=== PATIENT | male | born 1960 | race Caucasian/White ===

== ENCOUNTER 2016-11-09 22:36 | Emergency (ER) | payer BC ==
[2016-11-09] MEDS ORDERED: Ondansetron 4 MG Tab.DIS PO ONE (22:37)
[2016-11-09 23:12] VITALS: BP 112/87
[2016-11-10] MEDS ORDERED: Ondansetron 4 MG Tab.DIS PO ONE (00:07)
[2016-11-10 00:40] LABS: CHLORIDE,CL 96 mmol/L (101-111); SODIUM,NA 138 mmol/L (135-145)
--- NOTE | 2016-11-10 01:34 | EDM.PDOC ---
ED HPI GENERAL MEDICAL PROBLEM - General Chief Complaint: General Stated Complaint: DEHYDRATED? NOT EATING Time Seen by Provider: 11/09/16 23:10 Source of Information: Reports: Patient History Limitations: Reports: No Limitations - History of Present Illness INITIAL COMMENTS - FREE TEXT/NARRATIVE: Patient c/o nausea with vomiting worse after meals. Notes onset 2 weeks ago after starting new weekly medication for diabetes. Tolerating some small amounts of water. Duration: Week(s): (2) Worsens with: Reports: Eating Associated Symptoms: Reports: Loss of Appetite, Nausea/Vomiting - Related Data Allergies Allergy/AdvReac Type Severity Reaction Status Date / Time No Known Allergies Allergy Verified 11/09/16 23:12 Home Meds: Home Meds Insulin Detemir [Levemir] 20 units SQ BEDTIME 08/22/13 [History] metFORMIN [Glucophage] 500 mg PO BIDAC 08/22/13 [History] Past Medical History Cardiovascular History: Reports: High Cholesterol - Past Surgical History HEENT Surgical History: Reports: Other (See Below) Other HEENT Surgeries/Procedures: cleff palate reconstruction. GI Surgical History: Reports: Colonoscopy Social & Family History - Family History Family Medical History: Noncontributory - Tobacco Use Smoking Status *Q: Never Smoker Second Hand Smoke Exposure: No - Caffeine Use Caffeine Use: Reports: Coffee - Alcohol Use Days Per Week of Alcohol Use: 0 - Recreational Drug Use Recreational Drug Use: No ED ROS GENERAL - Review of Systems Review Of Systems: ROS reveals no pertinent complaints other than HPI. ED EXAM, GENERAL - Physical Exam Exam: See Below Exam Limited By: No Limitations General Appearance: Alert, Anxious, Mild Distress Eye Exam: Bilateral Eye: EOMI Ears: Normal External Exam, Normal TMs, Other (hearing aid left) Nose: Normal Inspection Throat/Mouth: Normal Inspection Head: Atraumatic, Normocephalic Neck: Normal Inspection, Supple, Full Range of Motion Respiratory/Chest: No Respiratory Distress, Lungs Clear, Normal Breath Sounds Cardiovascular: Normal Peripheral Pulses, Regular Rate, Rhythm GI/Abdominal: Normal Bowel Sounds, Soft, Tender (mild epigastric). No: Distended, Guarding Back Exam: Normal Inspection, Full Range of Motion Neurological: Alert, Oriented, Normal Cognition Psychiatric: Anxious Skin Exam: Warm, Dry, Intact, Normal Color Course - Vital Signs Last Recorded V/S: Last Vital Signs Temp 97.8 F 11/09/16 23:00 Pulse 102 H 11/09/16 23:55 Resp 14 11/09/16 23:00 BP 112/87 11/09/16 23:00 Pulse Ox 97 11/09/16 23:55 - Orders/Labs/Meds Labs: Laboratory Tests 11/09/16 11/10/16 11/10/16 Range/Units 23:26 00:15 00:15 WBC 8.1 (5.0-10.0) 10^3/uL RBC 5.27 (4.6-6.2) 10^6/uL Hgb 14.3 (14.0-18.0) g/dL Hct 41.6 (40.0-54.0) % MCV 78.9 L (80-100) fL MCH 27.1 (27.0-34.0) pg MCHC 34.4 (33.0-35.0) g/dL Plt Count 227 (150-450) 10^3/uL Neut % (Auto) 70.4 (42.2-75.2) % Lymph % (Auto) 19.8 L (20.5-50.1) % [place] % (Auto) 7.4 (2-8) % Eos % (Auto) 2.0 (1.0-3.0) % Baso % (Auto) 0.4 (0.0-1.0) % Sodium 138 (135-145) mmol/L Potassium 4.6 (3.6-5.0) mmol/L Chloride 96 L (101-111) mmol/L Carbon Dioxide 32.0 H (21.0-31.0) mmol/L Anion Gap 14.6 BUN 16 (7-18) mg/dL Creatinine 0.8 (0.6-1.3) mg/dL Est Cr Clr Drug Dosing 91.82 mL/min Estimated GFR (MDRD) > 60 BUN/Creatinine Ratio 20.00 Glucose 210 H (74-105) mg/dL POC Glucose 199 H (70-105) mg/dl Calcium 9.8 (8.4-10.2) mg/dl Total Bilirubin 1.1 H (0.2-1.0) mg/dL AST 16 (10-42) IU/L ALT 13 (10-60) IU/L Alkaline Phosphatase 57 (42-121) IU/L Total Protein 7.0 (6.7-8.2) g/dl Albumin 4.3 (3.2-5.5) g/dl Globulin 2.7 Albumin/Globulin Ratio 1.59 Meds: Medications Discontinued Medications Generic Name Dose Route Start Last Admin Trade Name Carolyn PRN Reason Stop Dose Admin Ondansetron HCl 4 mg 11/10/16 00:07 11/10/16 00:11 Zofran Odt PO 11/10/16 00:08 4 mg ONETIME ONE Administration Ondansetron HCl Confirm 11/10/16 01:47 Zofran Odt Administered 11/10/16 01:48 Dose 8 mg .ROUTE .STK-MED ONE Ondansetron HCl 8 mg 11/09/16 22:37 Zofran Odt PO 11/09/16 22:38 .STK-MED ONE - Re-Assessments/Exams Free Text/Narrative Re-Assessment/Exam: 11/10/16 01:43 127/73 sitting decrease 104/62 standing, aymptomatic at present with BP change. Nausea improved with Zofran, tolerating small amounts water without emesis Departure - Departure Time of Disposition: 01:41 Disposition: Home, Self-Care 01 Condition: Fair Clinical Impression: Nausea & vomiting Qualifiers: Vomiting type: unspecified Vomiting Intractability: non-intractable Qualified Code(s): R11.2 - Nausea with vomiting, unspecified Medication side effect Qualifiers: Encounter type: initial encounter Qualified Code(s): T88.7XXA - Unspecified adverse effect of drug or medicament, initial encounter - Discharge Information Instructions: Nausea, Adult Referrals: Ebony Card PA-C [Primary Care Provider] - Forms: ED Department Discharge Additional Instructions: bland diet small more frequent meals monitor blood sugar increase fluids follwo up with primary care this week zofran ODT 4mg one every 4 hours as needed for nausea #10
[2016-11-10] MEDS ORDERED: Ondansetron 4 MG Tab.DIS ONE (01:47)
== END 2016-11-10 01:50 | disposition home or self-care (01) ==
LOC: DL.ED 22:36
DX: R11.2 Nausea with vomiting, unspecified (principal); T50.995A Adverse effect of other drugs, medicaments and biological substances, initial encounter; E78.00 Pure hypercholesterolemia, unspecified; Z79.4 Long term (current) use of insulin
CPT/HCPCS: 36415; 80053; 82962; 85025; 99283; A9270

== ENCOUNTER 2016-11-11 22:38 | Emergency (ER) | payer BC ==
[2016-11-12] MEDS ORDERED: Morphine 2 MG/ML Syringe IVPUSH ONE (01:23)
[2016-11-12] MEDS ORDERED: Ondansetron 4 MG/2 ML SDV IV ONE (01:23)
[2016-11-12] MEDS ORDERED: Sodium Chloride 0.9% 1,000 ML IV ONE (01:23)
--- NOTE | 2016-11-12 01:26 | EDM.PDOC ---
ED HPI GENERAL MEDICAL PROBLEM - General Chief Complaint: Abdominal Pain Stated Complaint: VOMITING, COMING PRIVATE CAR Time Seen by Provider: 11/12/16 01:24 Source of Information: Reports: Patient History Limitations: Reports: No Limitations - History of Present Illness INITIAL COMMENTS - FREE TEXT/NARRATIVE: was here few days ago, problem began last week after starting on new IM DM-Rx. still vomiting with epiG pain, no appetite. 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 Chest Pain Score (Numeric/FACES): 9 - Related Data Allergies Allergy/AdvReac Type Severity Reaction Status Date / Time No Known Allergies Allergy Verified 11/09/16 23:12 Home Meds: Home Meds Insulin Detemir [Levemir] 20 units SQ BEDTIME 08/22/13 [History] metFORMIN [Glucophage] 500 mg PO BIDAC 08/22/13 [History] Past Medical History Cardiovascular History: Reports: High Cholesterol Neurological History: Reports: None Endocrine/Metabolic History: Reports: Diabetes, Type II - Past Surgical History HEENT Surgical History: Reports: Other (See Below) Other HEENT Surgeries/Procedures: cleff palate reconstruction. ear surgery GI Surgical History: Reports: Colonoscopy Social & Family History - Family History Family Medical History: Noncontributory - Tobacco Use Smoking Status *Q: Never Smoker Second Hand Smoke Exposure: No - Caffeine Use Caffeine Use: Reports: Coffee, Soda - Alcohol Use Days Per Week of Alcohol Use: 1 Number of Drinks Per Day: 1 Total Drinks Per Week: 1 - Recreational Drug Use Recreational Drug Use: No ED ROS GENERAL - Review of Systems Review Of Systems: ROS reveals no pertinent complaints other than HPI. ED EXAM, GI/ABD - Physical Exam Exam: See Below Exam Limited By: No Limitations General Appearance: Alert, WD/WN, Anxious, Mild Distress, Other (distraught) Ears: Hearing Grossly Normal Throat/Mouth: Normal Voice, No Airway Compromise Head: Atraumatic Neck: Non-Tender, Full Range of Motion Respiratory/Chest: No Respiratory Distress Cardiovascular: Regular Rate, Rhythm GI/Abdominal Exam: Soft, Tender, Other (minimal epig region). No: Distended, Guarding, Rigid, Rebound Neurological: Alert, Oriented, Normal Cognition, Normal Gait, No Motor/Sensory Deficits Psychiatric: Anxious, Flat Affect Skin Exam: Warm, Dry, Normal Color Lymphatic: No Adenopathy Course - Vital Signs Last Recorded V/S: Last Vital Signs Temp 36.4 C 11/12/16 03:20 Pulse 102 H 11/12/16 03:20 Resp 19 11/12/16 03:20 BP 156/76 H 11/12/16 03:20 Pulse Ox 100 11/12/16 03:20 - Orders/Labs/Meds Labs: Laboratory Tests 11/12/16 11/12/16 Range/Units 01:25 01:25 WBC 9.8 (5.0-10.0) 10^3/uL RBC 5.26 (4.6-6.2) 10^6/uL Hgb 14.3 (14.0-18.0) g/dL Hct 40.6 (40.0-54.0) % MCV 77.2 L (80-100) fL MCH 27.2 (27.0-34.0) pg MCHC 35.2 H (33.0-35.0) g/dL Plt Count 233 (150-450) 10^3/uL Neut % (Auto) 85.7 H (42.2-75.2) % Lymph % (Auto) 9.6 L (20.5-50.1) % [place] % (Auto) 4.4 (2-8) % Eos % (Auto) 0.0 L (1.0-3.0) % Baso % (Auto) 0.3 (0.0-1.0) % Sodium 131 L (135-145) mmol/L Potassium 3.9 (3.6-5.0) mmol/L Chloride 90 L (101-111) mmol/L Carbon Dioxide 28.0 (21.0-31.0) mmol/L Anion Gap 16.9 BUN 21 H (7-18) mg/dL Creatinine 0.9 (0.6-1.3) mg/dL Est Cr Clr Drug Dosing TNP Estimated GFR (MDRD) > 60 BUN/Creatinine Ratio 23.33 Glucose 254 H (74-105) mg/dL Calcium 9.5 (8.4-10.2) mg/dl Total Bilirubin 1.7 H (0.2-1.0) mg/dL AST 20 (10-42) IU/L ALT 14 (10-60) IU/L Alkaline Phosphatase 57 (42-121) IU/L Troponin I < 0.02 (0.00-0.02) ng/ml Total Protein 7.1 (6.7-8.2) g/dl Albumin 4.4 (3.2-5.5) g/dl Globulin 2.7 Albumin/Globulin Ratio 1.63 Amylase 28 (28-100) U/L Lipase 31 (22-51) U/L Meds: Medications Discontinued Medications Generic Name Dose Route Start Last Admin Trade Name Rikkiq PRN Reason Stop Dose Admin Sodium Chloride 1,000 mls @ 500 mls/hr 11/12/16 01:23 11/12/16 01:35 Normal Saline IV 11/12/16 03:22 500 mls/hr .BOLUS ONE Administration Iopamidol 75 ml 11/12/16 01:43 11/12/16 02:33 Isovue-300 (61%) IVPUSH 11/12/16 01:44 75 ml ONETIME ONE Administration Morphine Sulfate 2 mg 11/12/16 01:23 11/12/16 01:36 Morphine IVPUSH 11/12/16 01:24 2 mg ONETIME ONE Administration Ondansetron HCl 4 mg 11/12/16 01:23 11/12/16 01:36 Zofran IV 11/12/16 01:24 4 mg ONETIME ONE Administration Pantoprazole Sodium 80 mg 11/12/16 02:43 11/12/16 02:53 Protonix Iv IVPUSH 11/12/16 02:44 80 mg .BOLUS ONE Administration - Re-Assessments/Exams Free Text/Narrative Re-Assessment/Exam: 11/12/16 02:44 results discussed with pt who has seen Dr Rivera before colon polyps Departure - Departure Time of Disposition: 03:25 Disposition: Home, Self-Care 01 Condition: Good Clinical Impression: Esophagitis Abdominal pain Qualifiers: Abdominal location: epigastric Qualified Code(s): R10.13 - Epigastric pain - Discharge Information Instructions: Esophagitis Forms: ED Department Discharge Additional Instructions: 1) avoid spicy foods 2) see Dr Rivera for gastroscopy rx given; zantac 150mg bid x 20
[2016-11-12] MEDS ORDERED: Iopamidol 612 MG/ML 75 ML Bottle IVPUSH ONE (01:43)
[2016-11-12 01:55] LABS: CHLORIDE,CL 90 mmol/L (101-111); SODIUM,NA 131 mmol/L (135-145)
[2016-11-12] MEDS ORDERED: Pantoprazole 40 MG Vial IVPUSH ONE (02:43)
[2016-11-12 03:33] VITALS: BP 156/76
== END 2016-11-12 03:28 | disposition home or self-care (01) ==
LOC: DL.ED 22:38
DX: K20.9 Esophagitis, unspecified (principal); E11.9 Type 2 diabetes mellitus without complications; Z79.4 Long term (current) use of insulin; E78.00 Pure hypercholesterolemia, unspecified
CPT/HCPCS: 36415; 74177; 80053; 82150; 83690; 84484; 85025; 96361; 96374; 96375; 99284; C9113; J2270; J2405; J7030; Q9967

== ENCOUNTER 2016-12-28 14:06 | Emergency (ER) | payer BC ==
[2016-12-28] MEDS ORDERED: Sodium Chloride 0.9% 1,000 ML IV ONE (14:28)
[2016-12-28] MEDS ORDERED: Ondansetron 4 MG/2 ML SDV IV ONE (14:28)
--- NOTE | 2016-12-28 14:30 | EDM.PDOC ---
ED HPI GENERAL MEDICAL PROBLEM - General Chief Complaint: General Stated Complaint: THROWING UP, PASSING OUT Time Seen by Provider: 12/28/16 14:28 Source of Information: Reports: Patient History Limitations: Reports: No Limitations - History of Present Illness INITIAL COMMENTS - FREE TEXT/NARRATIVE: 56 yo white male brought in female friend w/ c/o N&V since Tuesday (3 days). Pt. states approx. six weeks ago he was started on Trulicity for DM and had persistent N&V and stopped in two weeks. Pt. was hospitalized at hospital in [facility] two weeks ago for Dehydration and had Negative endoscopy. Pt. has visited this ED X 3 for this problem and [facility] in [place] X 2 for same w/ Negative findings for the cause of abdomen pain and N&V Pt. states his Metformin was D/C'd at [facility] during his second ED visit Onset Date: 11/10/16 (Initial) Duration: Week(s): Location: Reports: Abdomen, Generalized Quality: Reports: Ache Severity: Moderate Improves with: Reports: None Worsens with: Reports: None Associated Symptoms: Reports: Loss of Appetite, Nausea/Vomiting, Weakness Abdomen Pain Score (Numeric/FACES): 7 - Related Data Allergies Allergy/AdvReac Type Severity Reaction Status Date / Time [facility]ulaglut[facility] Allergy Nausea Verified 12/28/16 14:29 Home Meds: Home Meds ALPRAZolam [Alprazolam] 0.5 mg PO BID 12/28/16 [History] Insulin Glarg,Human.Rec.Analog [LantUS Solostar] 28 units SUBCUT DAILY 12/28/16 [History] Past Medical History Cardiovascular History: Reports: High Cholesterol Neurological History: Reports: None Endocrine/Metabolic History: Reports: Diabetes, Type II - Past Surgical History HEENT Surgical History: Reports: Other (See Below) Other HEENT Surgeries/Procedures: cleff palate reconstruction. ear surgery GI Surgical History: Reports: Colonoscopy Social & Family History - Family History Family Medical History: Noncontributory - Tobacco Use Smoking Status *Q: Never Smoker Second Hand Smoke Exposure: No - Caffeine Use Caffeine Use: Reports: Coffee, Soda - Alcohol Use Days Per Week of Alcohol Use: 1 Number of Drinks Per Day: 1 Total Drinks Per Week: 1 - Recreational Drug Use Recreational Drug Use: No ED ROS GENERAL - Review of Systems Review Of Systems: See Below Constitutional: Reports: Weakness, Decreased Appetite HEENT: Reports: No Symptoms Respiratory: Reports: No Symptoms Cardiovascular: Reports: No Symptoms Endocrine: Reports: No Symptoms GI/Abdominal: Reports: Abdominal Pain (epig), Decreased Appetite : Reports: No Symptoms Musculoskeletal: Reports: No Symptoms Skin: Reports: No Symptoms Neurological: Reports: No Symptoms Psychiatric: Reports: No Symptoms Hematologic/Lymphatic: Reports: No Symptoms Immunologic: Reports: No Symptoms ED EXAM, GENERAL - Physical Exam Exam: See Below Exam Limited By: No Limitations General Appearance: Alert, No Apparent Distress, Anxious, Thin Eye Exam: Bilateral Eye: EOMI, PERRL Ears: Normal External Exam Nose: Normal Inspection Throat/Mouth: Normal Inspection, Normal Lips Head: Atraumatic, Normocephalic Neck: Normal Inspection, Supple Respiratory/Chest: No Respiratory Distress, Lungs Clear, Normal Breath Sounds Cardiovascular: Normal Peripheral Pulses, Regular Rate, Rhythm, No Edema Peripheral Pulses: 2+: Radial (L), Radial (R) GI/Abdominal: Soft, No Organomegaly, Tender (difusse but amrik in epigastric area) , Abnormal Bowel Sounds (decreased) Back Exam: Normal Inspection Extremities: Normal Inspection, Normal Range of Motion, Non-Tender Neurological: Alert, Oriented, CN II-XII Intact, Normal Cognition Psychiatric: Normal Affect, Normal Mood Skin Exam: Warm, Dry, Intact, Normal Color, No Rash Lymphatic: No Adenopathy Course - Vital Signs Last Recorded V/S: Last Vital Signs Temp 36.9 C 12/28/16 14:33 Pulse 115 H 12/28/16 14:33 Resp 16 12/28/16 14:33 BP 187/95 H 12/28/16 14:33 Pulse Ox 100 12/28/16 14:33 - Orders/Labs/Meds Orders: Active Orders 24 hr Category Date Time Status EKG Documentation Completion [RC] STAT Care 12/28/16 14:28 Active UA W/MICROSCOPIC [URIN] Stat Lab 12/28/16 14:28 Uncollected D5 1/2 NS w/ 20 mEq/L KCl 1,000 ml Med 12/28/16 15:30 Active IV ASDIRECTED Pantoprazole [ProTONIX IV] 40 mg Med 12/28/16 15:00 Active Sodium Chloride 0.9% [Normal Saline] 100 ml IV .CONTINUOS Medication Orders Pantoprazole Sodium 40 mg/ (Sodium Chloride) 100 mls @ 20 mls/hr IV .CONTINUOS JOSE Last Admin: 12/28/16 15:19 Dose: 20 mls/hr Potassium Chloride/Dextrose/Sod Cl (D5 1/2 Ns W/ 20 Meq/L Kcl) 1,000 mls @ 75 mls/hr IV ASDIRECTED JOSE Last Admin: 12/28/16 16:16 Dose: 75 mls/hr Labs: Laboratory Tests 12/28/16 12/28/16 12/28/16 Range/Units 14:36 14:36 14:36 WBC 7.9 (5.0-10.0) 10^3/uL RBC 5.18 (4.6-6.2) 10^6/uL Hgb 14.1 (14.0-18.0) g/dL Hct 39.6 L (40.0-54.0) % MCV 76.4 L (80-100) fL MCH 27.2 (27.0-34.0) pg MCHC 35.6 H (33.0-35.0) g/dL Plt Count 295 (150-450) 10^3/uL Neut % (Auto) 86.7 H (42.2-75.2) % Lymph % (Auto) 10.3 L (20.5-50.1) % [place] % (Auto) 2.9 (2-8) % Eos % (Auto) 0.0 L (1.0-3.0) % Baso % (Auto) 0.1 (0.0-1.0) % Sodium 133 L (135-145) mmol/L Potassium 3.2 L (3.6-5.0) mmol/L Chloride 95 L (101-111) mmol/L Carbon Dioxide 22.0 (21.0-31.0) mmol/L Anion Gap 19.2 BUN 22 H (7-18) mg/dL Creatinine 0.8 (0.6-1.3) mg/dL Est Cr Clr Drug Dosing 88.39 mL/min Estimated GFR (MDRD) > 60 BUN/Creatinine Ratio 27.50 Glucose 287 H (74-105) mg/dL Calcium 9.8 (8.4-10.2) mg/dl Magnesium (1.8-2.5) mg/dL Total Bilirubin 1.6 H (0.2-1.0) mg/dL AST 18 (10-42) IU/L ALT 24 (10-60) IU/L Alkaline Phosphatase 78 (42-121) IU/L Troponin I < 0.02 (0.00-0.02) ng/ml Total Protein 7.5 (6.7-8.2) g/dl Albumin 4.5 (3.2-5.5) g/dl Globulin 3.0 Albumin/Globulin Ratio 1.50 Amylase 12 L (28-100) U/L Lipase 16 L (22-51) U/L 11/14/17 Range/Units 14:36 WBC (5.0-10.0) 10^3/uL RBC (4.6-6.2) 10^6/uL Hgb (14.0-18.0) g/dL Hct (40.0-54.0) % MCV (80-100) fL MCH (27.0-34.0) pg MCHC (33.0-35.0) g/dL Plt Count (150-450) 10^3/uL Neut % (Auto) (42.2-75.2) % Lymph % (Auto) (20.5-50.1) % [place] % (Auto) (2-8) % Eos % (Auto) (1.0-3.0) % Baso % (Auto) (0.0-1.0) % Sodium (135-145) mmol/L Potassium (3.6-5.0) mmol/L Chloride (101-111) mmol/L Carbon Dioxide (21.0-31.0) mmol/L Anion Gap BUN (7-18) mg/dL Creatinine (0.6-1.3) mg/dL Est Cr Clr Drug Dosing mL/min Estimated GFR (MDRD) BUN/Creatinine Ratio Glucose (74-105) mg/dL Calcium (8.4-10.2) mg/dl Magnesium 1.8 (1.8-2.5) mg/dL Total Bilirubin (0.2-1.0) mg/dL AST (10-42) IU/L ALT (10-60) IU/L Alkaline Phosphatase (42-121) IU/L Troponin I (0.00-0.02) ng/ml Total Protein (6.7-8.2) g/dl Albumin (3.2-5.5) g/dl Globulin Albumin/Globulin Ratio Amylase (28-100) U/L Lipase (22-51) U/L Meds: Medications Generic Name Dose Route Start Last Admin Trade Name Freq PRN Reason Stop Dose Admin Pantoprazole Sodium 40 mg/ 100 mls @ 20 mls/hr 12/28/16 15:00 12/28/16 15:19 Sodium Chloride IV 20 mls/hr .CONTINUOS JOSE Administration Potassium Chloride/Dextrose/Sod Cl 1,000 mls @ 75 mls/hr 12/28/16 15:30 12/28 16:16 D5 1/2 Ns W/ 20 Meq/L Kcl IV 75 mls/hr ASDIRECTED JOSE Administration Discontinued Medications Generic Name Dose Route Start Last Admin Trade Name Freq PRN Reason Stop Dose Admin Sodium Chloride 1,000 mls @ 999 mls/hr 12/28/16 14:28 12/28/16 15:00 Normal Saline IV 12/28/16 15:28 999 mls/hr .BOLUS ONE Administration Morphine Sulfate 4 mg 12/28/16 14:58 12/28/16 15:04 Morphine IVPUSH 12/28/16 14:59 4 mg ONETIME ONE Administration Ondansetron HCl 4 mg 12/28/16 14:28 12/28/16 15:00 Zofran IV 12/28/16 14:29 4 mg ONETIME ONE Administration Departure - Departure Time of Disposition: 16:40 Disposition: Home, Self-Care 01 Condition: Good Clinical Impression: Gastroparesis due to secondary diabetes, Hypokalemia Nausea & vomiting Qualifiers: Vomiting type: unspecified Vomiting Intractability: non-intractable Qualified Code(s): R11.2 - Nausea with vomiting, unspecified - Discharge Information Forms: ED Department Discharge Additional Instructions: Rest Sip fluids Take the REGLAN 10mg BID for the N&V F/U w/ PCP for Gastroenterology Evaluation and Management - My Orders Last 24 Hours: My Active Orders 12/28/16 14:28 EKG Documentation Completion [RC] STAT UA W/MICROSCOPIC [URIN] Stat 12/28/16 15:00 Pantoprazole [ProTONIX IV] 40 mg Sodium Chloride 0.9% [Normal Saline] 100 ml IV .CONTINUOS 12/28/16 15:30 D5 1/2 NS w/ 20 mEq/L KCl 1,000 ml IV ASDIRECTED - Assessment/Plan Last 24 Hours: My Active Orders 12/28/16 14:28 EKG Documentation Completion [RC] STAT UA W/MICROSCOPIC [URIN] Stat 12/28/16 15:00 Pantoprazole [ProTONIX IV] 40 mg Sodium Chloride 0.9% [Normal Saline] 100 ml IV .CONTINUOS 12/28/16 15:30 D5 1/2 NS w/ 20 mEq/L KCl 1,000 ml IV ASDIRECTED
[2016-12-28 14:36] VITALS: BP 187/95
[2016-12-28] MEDS ORDERED: Morphine 4 MG/ML Syringe IVPUSH ONE (14:58)
[2016-12-28] MEDS ORDERED: Pantoprazole 40 MG in Sodium Chloride 0.9% 100 ML IV SCH (15:00)
[2016-12-28 15:09] LABS: CHLORIDE,CL 95 mmol/L (101-111); SODIUM,NA 133 mmol/L (135-145)
[2016-12-28] MEDS ORDERED: D5 1/2 NS w/ 20 mEq/L KCl 1,000 ML IV SCH (15:30)
[2016-12-28] MEDS ORDERED: Potassium Chloride 10 MEQ Tab.ER PO ONE (16:43)
--- NOTE | 2017-01-28 11:24 | EKG ---
12/28/2016 - JEEVAN HANNA I reviewed the EKG and agree with the machine's reading. [facility] /[id number]
== END 2016-12-28 16:59 | disposition home or self-care (01) ==
LOC: DL.ED 14:06
DX: E11.43 Type 2 diabetes mellitus with diabetic autonomic (poly)neuropathy (principal); K31.84 Gastroparesis; E87.6 Hypokalemia; E78.00 Pure hypercholesterolemia, unspecified; Z79.4 Long term (current) use of insulin; Z88.8 Allergy status to other drugs, medicaments and biological substances
CPT/HCPCS: 36415; 80053; 82150; 83690; 83735; 84484; 85025; 93005; 96365; 96366; 96375; 99284; A9270; C9113; J2270; J2405; J3480; J7030; J7050

== ENCOUNTER 2017-04-18 19:00 | Inpatient (IN) | payer BC ==
[2017-04-18] MEDS ORDERED: Sodium Chloride 0.9% 1,000 ML IV ONE ×2 (19:13→21:24)
[2017-04-18 19:42] LABS: CHLORIDE,CL 95 mmol/L (101-111); SODIUM,NA 135 mmol/L (135-145)
[2017-04-18] MEDS ORDERED: Morphine 2 MG/ML Syringe IVPUSH ONE (19:42)
[2017-04-18] MEDS ORDERED: Ondansetron 4 MG/2 ML SDV IV ONE (19:46)
[2017-04-18] MEDS ORDERED: Potassium Chloride 10 MEQ in Premix Bag 1 BAG IV ONE (19:55)
[2017-04-18] MEDS ORDERED: Pantoprazole 40 MG Vial IVPUSH ONE (20:07)
[2017-04-18] MEDS ORDERED: fentaNYL 100 MCG/2 ML SDV IVPUSH ONE (20:40)
--- NOTE | 2017-04-18 21:02 | EDM.PDOC ---
ED HPI GENERAL MEDICAL PROBLEM - General Chief Complaint: Abdominal Pain Stated Complaint: IN BY [facility] Time Seen by Provider: 04/18/17 19:10 Source of Information: Reports: Patient History Limitations: Reports: No Limitations - History of Present Illness INITIAL COMMENTS - FREE TEXT/NARRATIVE: ED via [facility] with c/o abdominal pain and vomiting since Tuesday. Reports unable to keep anything down. Has hx of similar episodes in past . Abdominal Pain Score (Numeric/FACES): 5 - Related Data Allergies Allergy/AdvReac Type Severity Reaction Status Date / Time [facility]ide [[facility] Allergy Nausea Verified 04/18/17 22:10 Home Meds: Home Meds Insulin Glarg,Human.Rec.Analog [LantUS Solostar] 38 units SUBCUT DAILY 12/28/16 [History] Escitalopram [Lexapro] 20 mg PO DAILY 04/18/17 [History] Insulin Regular, Human [NovoLIN R] 5 units SQ ASDIRECTED 04/18/17 [History] Potassium Chloride [Potassium Chloride] 10 meq PO DAILY 04/18/17 [History] Ranitidine HCl [Ranitidine] 150 mg PO DAILY 04/18/17 [History] Past Medical History HEENT History: Reports: Impaired Vision Cardiovascular History: Reports: High Cholesterol Gastrointestinal History: Reports: GERD Genitourinary History: Reports: Diabetic Nephropathy Neurological History: Reports: None Psychiatric History: Reports: Anxiety Endocrine/Metabolic History: Reports: Diabetes, Type II - Past Surgical History HEENT Surgical History: Reports: Other (See Below) Other HEENT Surgeries/Procedures: cleff palate reconstruction. ear surgery GI Surgical History: Reports: Colonoscopy Social & Family History - Family History Family Medical History: Noncontributory - Tobacco Use Smoking Status *Q: Never Smoker Second Hand Smoke Exposure: No - Caffeine Use Caffeine Use: Reports: Coffee - Alcohol Use Days Per Week of Alcohol Use: 1 Number of Drinks Per Day: 1 Total Drinks Per Week: 1 - Recreational Drug Use Recreational Drug Use: No ED ROS GENERAL - Review of Systems Review Of Systems: See Below Constitutional: Denies: Fever, Chills HEENT: Reports: No Symptoms, Vision Change Cardiovascular: Reports: No Symptoms Endocrine: Reports: No Symptoms GI/Abdominal: Reports: Abdominal Pain, Nausea, Vomiting. Denies: Diarrhea Musculoskeletal: Reports: No Symptoms Skin: Reports: No Symptoms Neurological: Reports: No Symptoms Psychiatric: Reports: No Symptoms ED EXAM, GI/ABD - Physical Exam Exam: See Below Exam Limited By: No Limitations General Appearance: Alert, Anxious, Mild Distress Eyes: Bilateral: EOMI Ears: Normal External Exam Nose: Normal Inspection Throat/Mouth: Normal Inspection Head: Atraumatic, Normocephalic Neck: Normal Inspection, Full Range of Motion Respiratory/Chest: No Respiratory Distress, Lungs Clear Cardiovascular: Normal Peripheral Pulses, Regular Rate, Rhythm GI/Abdominal Exam: Normal Bowel Sounds, Soft, Abnormal Bowel Sounds (hyperactive ) Rectal (Males) Exam: Normal Rectal Tone, Heme - Stool Back Exam: Normal Inspection Extremities: Normal Inspection Neurological: Alert, Oriented, Normal Cognition Psychiatric: Normal Affect, Normal Mood Skin Exam: Warm, Dry, Intact, Normal Color Course - Vital Signs Last Recorded V/S: Last Vital Signs Temp 98.6 F 04/18/17 22:10 Pulse 112 H 04/18/17 22:10 Resp 16 04/18/17 22:10 BP 203/88 H 04/18/17 22:10 Pulse Ox 100 04/18/17 22:10 - Orders/Labs/Meds Orders: Medication Orders Escitalopram Oxalate (Lexapro) 20 mg PO DAILY [facility] Heparin Sodium (Porcine) (Heparin Sodium) 5,000 units SUBCUT Q8HR [facility] Insulin Human Regular 100 unit (/ Sodium Chloride) 100 mls @ 6.55 mls/hr IV TITRATE JOSE; 0.1 UNITS/KG/HR PRN Reason: Protocol Potassium Chloride 20 meq/ (Premix) 100 mls @ 50 mls/hr IV ONETIME ONE Stop: 04/19/17 01:43 Last Admin: 04/18/17 23:58 Dose: 50 mls/hr Potassium Chloride/Sodium Chloride (Normal Saline With 40 Meq Kcl) 1,000 mls @ 150 mls/hr IV ASDIRECTED [facility] Ondansetron HCl (Zofran) 4 mg IVPUSH Q4H PRN PRN Reason: Nausea/Vomiting Labs: Laboratory Tests 04/18/17 04/18/17 04/18/17 Range/Units 19:13 19:13 19:13 WBC 10.5 H (5.0-10.0) 10^3/uL RBC 5.02 (4.6-6.2) 10^6/uL Hgb 14.1 (14.0-18.0) g/dL Hct 38.3 L (40.0-54.0) % MCV 76.3 L (80-100) fL MCH 28.1 (27.0-34.0) pg MCHC 36.8 H (33.0-35.0) g/dL Plt Count 231 (150-450) 10^3/uL Neut % (Auto) 89.5 H (42.2-75.2) % Lymph % (Auto) 7.0 L (20.5-50.1) % [place]eadle % (Auto) 3.3 (2-8) % Eos % (Auto) 0.1 L (1.0-3.0) % Baso % (Auto) 0.1 (0.0-1.0) % Sodium 135 (135-145) mmol/L Potassium 3.0 L (3.6-5.0) mmol/L Chloride 95 L (101-111) mmol/L Carbon Dioxide 22.0 (21.0-31.0) mmol/L Anion Gap 21.0 BUN 17 (7-18) mg/dL Creatinine 0.7 (0.6-1.3) mg/dL Est Cr Clr Drug Dosing 99.84 mL/min Estimated GFR (MDRD) > 60 BUN/Creatinine Ratio 24.28 Glucose 286 H (74-105) mg/dL Lactic Acid 3.0 H (0.5-2.2) mmol/L Calcium 9.6 (8.4-10.2) mg/dl Total Bilirubin 1.8 H (0.2-1.0) mg/dL AST 31 (10-42) IU/L ALT 24 (10-60) IU/L Alkaline Phosphatase 70 (42-121) IU/L Total Protein 7.5 (6.7-8.2) g/dl Albumin 4.4 (3.2-5.5) g/dl Globulin 3.1 Albumin/Globulin Ratio 1.42 Amylase 30 (28-100) U/L Lipase < 10 L (22-51) U/L Urine Color (YELLOW) Urine Appearance (CLEAR) Urine pH (5.0-9.0) Ur Specific [place] (1.005-1.030) Urine Protein (NEGATIVE) Urine Glucose (UA) (NEGATIVE) Urine Ketones (NEGATIVE) Urine Occult Blood (NEGATIVE) Urine Nitrite (NEGATIVE) Urine Bilirubin (NEGATIVE) Urine Urobilinogen (0.2-1.0) mg/dL Ur Leukocyte Esterase (NEGATIVE) Urine RBC /HPF Urine WBC (0-5/HPF) /HPF Ur Epithelial Cells /HPF Amorphous Sediment (0/HPF) /HPF Urine Mucus /LPF 04/18/17 Range/Units 20:33 WBC (5.0-10.0) 10^3/uL RBC (4.6-6.2) 10^6/uL Hgb (14.0-18.0) g/dL Hct (40.0-54.0) % MCV (80-100) fL MCH (27.0-34.0) pg MCHC (33.0-35.0) g/dL Plt Count (150-450) 10^3/uL Neut % (Auto) (42.2-75.2) % Lymph % (Auto) (20.5-50.1) % Beadle % (Auto) (2-8) % Eos % (Auto) (1.0-3.0) % Baso % (Auto) (0.0-1.0) % Sodium (135-145) mmol/L Potassium (3.6-5.0) mmol/L Chloride (101-111) mmol/L Carbon Dioxide (21.0-31.0) mmol/L Anion Gap BUN (7-18) mg/dL Creatinine (0.6-1.3) mg/dL Est Cr Clr Drug Dosing mL/min Estimated GFR (MDRD) BUN/Creatinine Ratio Glucose (74-105) mg/dL Lactic Acid (0.5-2.2) mmol/L Calcium (8.4-10.2) mg/dl Total Bilirubin (0.2-1.0) mg/dL AST (10-42) IU/L ALT (10-60) IU/L Alkaline Phosphatase (42-121) IU/L Total Protein (6.7-8.2) g/dl Albumin (3.2-5.5) g/dl Globulin Albumin/Globulin Ratio Amylase (28-100) U/L Lipase (22-51) U/L Urine Color Yellow (YELLOW) Urine Appearance Slightly cloudy (CLEAR) Urine pH >= 9.0 (5.0-9.0) Ur Specific [place] 1.015 (1.005-1.030) Urine Protein Negative (NEGATIVE) Urine Glucose (UA) 500 H (NEGATIVE) Urine Ketones 80 H (NEGATIVE) Urine Occult Blood Negative (NEGATIVE) Urine Nitrite Negative (NEGATIVE) Urine Bilirubin Negative (NEGATIVE) Urine Urobilinogen 1.0 (0.2-1.0) mg/dL Ur Leukocyte Esterase Negative (NEGATIVE) Urine RBC Not seen /HPF Urine WBC 0-5 (0-5/HPF) /HPF Ur Epithelial Cells Rare /HPF Amorphous Sediment Many (0/HPF) /HPF Urine Mucus Moderate H /LPF Meds: Medications Generic Name Dose Route Start Last Admin Trade Name Carolyn PRN Reason Stop Dose Admin Escitalopram Oxalate 20 mg 04/19/17 09:00 Lexapro PO DAILY [facility] Heparin Sodium (Porcine) 5,000 units 04/19/17 06:00 Heparin Sodium SUBCUT Q8HR [facility] Insulin Human Regular 100 unit 100 mls @ 6.55 mls/hr 04/18/17 23:45 / Sodium Chloride IV TITRATE [facility] Protocol 0.1 UNITS/KG/HR Potassium Chloride 20 meq/ 100 mls @ 50 mls/hr 04/18/17 23:44 04/18/17 23:58 Premix IV 04/19/17 01:43 50 mls/hr ONETIME ONE Administration Potassium Chloride/Sodium Chloride 1,000 mls @ 150 mls/hr 04/18/17 23:45 Normal Saline With 40 Meq Kcl IV ASDIRECTED [facility] Ondansetron HCl 4 mg 04/18/17 23:31 Zofran IVPUSH Q4H PRN Nausea/Vomiting Discontinued Medications Generic Name Dose Route Start Last Admin Trade Name Carolyn PRN Reason Stop Dose Admin Al Hydroxide/Mg Hydroxide 30 ml 04/18/17 21:47 04/18/17 21:53 Gi Cocktail PO 04/18/17 21:48 30 ml ONETIME ONE Administration Fentanyl 50 mcg 04/18/17 20:40 04/18/17 20:55 Sublimaze IVPUSH 04/18/17 20:41 50 mcg ONETIME ONE Administration Sodium Chloride 1,000 mls @ 999 mls/hr 04/18/17 19:13 04/18/17 19:29 Normal Saline IV 04/18/17 20:13 999 mls/hr .BOLUS ONE Administration Potassium Chloride 10 meq/ 100 mls @ 100 mls/hr 04/18/17 19:55 04/18/17 20:01 Premix IV 04/18/17 20:54 100 mls/hr ONETIME ONE Administration Sodium Chloride 1,000 mls @ 125 mls/hr 04/18/17 21:24 04/18/17 21:25 Normal Saline IV 04/19/17 05:23 125 mls/hr ASDIRECTED ONE Administration Lorazepam 0.5 mg 04/18/17 21:04 04/18/17 21:14 Ativan IM 04/18/17 21:05 0.5 mg ONETIME ONE Administration Morphine Sulfate 2 mg 04/18/17 19:42 04/18/17 19:50 Morphine IVPUSH 04/18/17 19:43 2 mg ONETIME ONE Administration Ondansetron HCl 4 mg 04/18/17 19:46 04/18/17 19:49 Zofran IV 04/18/17 19:47 4 mg ONETIME ONE Administration Pantoprazole Sodium 40 mg 04/18/17 20:07 04/18/17 21:14 Protonix Iv IVPUSH 04/18/17 20:08 40 mg ONETIME ONE Administration - Re-Assessments/Exams Free Text/Narrative Re-Assessment/Exam: 04/19/17 01:[address] Drake, accepting of patient for further evaluation and management of abdominal pain with nausea and hematemesis. Patient tx to nursing floor. Departure - Departure Time of Disposition: 22:00 Disposition: Admitted As Inpatient 68 Condition: Good Clinical Impression: Hypokalemia Abdominal pain Qualifiers: Abdominal location: epigastric Qualified Code(s): R10.13 - Epigastric pain Nausea & vomiting Qualifiers: Vomiting type: unspecified Vomiting Intractability: non-intractable Qualified Code(s): R11.2 - Nausea with vomiting, unspecified Hyperglycemia due to type 2 diabetes mellitus Qualifiers: Diabetes mellitus half-way insulin use: unspecified terminal carman insulin use status Qualified Code(s): E11.65 - Type 2 diabetes mellitus with hyperglycemia - Discharge Information
[2017-04-18] MEDS ORDERED: LORazepam 2 MG/ML Syringe IM ONE (21:04)
[2017-04-18] MEDS ORDERED: GI Cocktail Oral Solution 30 ML PO ONE (21:47)
[2017-04-18] MEDS ORDERED: Ondansetron 4 MG/2 ML SDV IVPUSH PRN (23:31)
[2017-04-18] MEDS ORDERED: Potassium Chloride 20 MEQ in Premix Bag 1 BAG IV ONE (23:44)
[2017-04-18] MEDS ORDERED: Sodium Chloride 0.9% with KCl 1,000 ML IV SCH (23:45)
--- NOTE | 2017-04-18 23:52 | PCM.HP ---
H&P History of Present Illness - General Date of Service: 04/18/17 Admit Problem/Dx: Admission Diagnosis/Problem Admission Diagnosis/Problem Diabetic ketoacidosis Source of Information: Patient History Limitations: Reports: No Limitations - History of Present Illness Initial Comments - Free Text/Narative: 57 yo with PMH of DM, GI bleed who comes to the ED with nausea, vomiting, abdominal pain. Symptoms started today. Abdominal pain is epigastric Has had several episodes of vomiting Location: Reports: Abdomen Quality: Reports: Dull Improves with: Reports: None Worsens with: Reports: None Associated Symptoms: Reports: Nausea/Vomiting Abdominal Pain Score (Numeric/FACES): 0 - Related Data Allergies/Adverse Reactions: Allergies Allergy/AdvReac Type Severity Reaction Status Date / Time dulaglutide [From [facility]] Allergy Nausea Verified 04/18/17 22:10 Home Medications: Home Meds Insulin Glarg,Human.Rec.Analog [LantUS Solostar] 38 units SUBCUT DAILY 12/28/16 [History] Escitalopram [Lexapro] 20 mg PO DAILY 04/18/17 [History] Insulin Regular, Human [NovoLIN R] 5 units SQ ASDIRECTED 04/18/17 [History] Potassium Chloride [Potassium Chloride] 10 meq PO DAILY 04/18/17 [History] Ranitidine HCl [Ranitidine] 150 mg PO DAILY 04/18/17 [History] Past Medical History HEENT History: Reports: Impaired Vision Cardiovascular History: Reports: High Cholesterol Gastrointestinal History: Reports: GERD Genitourinary History: Reports: Diabetic Nephropathy Neurological History: Reports: None Psychiatric History: Reports: Anxiety Endocrine/Metabolic History: Reports: Diabetes, Type II - Infectious Disease History Infectious Disease History: Reports: Chicken Pox - Past Surgical History HEENT Surgical History: Reports: Other (See Below) Other HEENT Surgeries/Procedures: cleff palate reconstruction. ear surgery GI Surgical History: Reports: Colonoscopy Social & Family History - Family History Family Medical History: Noncontributory - Tobacco Use Smoking Status *Q: Never Smoker Second Hand Smoke Exposure: No - Caffeine Use Caffeine Use: Reports: Coffee Caffeine Use Comment: 1/2 pot of coffee daily - Alcohol Use Days Per Week of Alcohol Use: 1 Number of Drinks Per Day: 2 Total Drinks Per Week: 2 Date of Last Drink: 04/14/17 Time of Last Drink: 19:00 - Recreational Drug Use Recreational Drug Use: No H&P Review of Systems - Review of Systems: Review Of Systems: ROS reveals no pertinent complaints other than HPI. Exam - Exam Exam: See Below - Vital Signs Vital Signs: Last Vital Signs Temp 37.0 C 04/18/17 22:10 Pulse 112 H 04/18/17 22:10 Resp 16 04/18/17 22:10 BP 203/88 H 04/18/17 22:10 Pulse Ox 100 04/18/17 22:10 Weight: 65.544 kg - Exam General: Alert, Oriented, 4 HEENT: Conjunctiva Clear, EACs Clear, EOMI, Hearing Intact, Nares Patent, Normal Nasal Septum, Posterior Pharynx Clear, TMs Clear, PERRLA Neck: Supple, Trachea Midline, 2 Lungs: Clear to Auscultation, Normal Respiratory Effort Cardiovascular: Regular Rate, Regular Rhythm GI/Abdominal Exam: Normal Bowel Sounds, Soft, Non-Tender, No Organomegaly, No Distention, No Abnormal Bruit, No Mass, Pelvis Stable - Patient Data Result Diagrams: 04/18/17 19:13 04/18/17 19:13 *Q Meaningful Use (ADM) - VTE *Q VTE Criteria *Q: - Stroke *Q Stroke Criteria *Q: - AMI *Q AMI Criteria *Q: - Problem List (1) DKA, type 2 SNOMED Code(s): 215042069 ICD Code: E11.10 - TYPE 2 DIABETES MELLITUS WITH KETOACIDOSIS WITHOUT COMA Status: Acute Current Visit: Yes (2) Hypokalemia SNOMED Code(s): 09814109 ICD Code: E87.6 - HYPOKALEMIA Status: Acute Current Visit: No Problem List Initiated/Reviewed/Updated: Yes Orders Last 24hrs: Active Orders 24 hr Category Date Time Status Patient Status [ADT] Routine ADT 04/18/17 23:31 Ordered Blood Glucose Check, Bedside [RC] Q1HR Care 04/18/17 23:41 Ordered Intake and Output [RC] QSHIFT Care 04/18/17 23:33 Ordered Oxygen Therapy [RC] PRN Care 04/18/17 23:31 Ordered Up ad Radha [RC] ASDIRECTED Care 04/18/17 23:31 Ordered VTE/DVT Education [RC] PER UNIT ROUTINE Care 04/18/17 23:31 Ordered Vital Signs [RC] Q4H Care 04/18/17 23:31 Ordered Nothing per Oral Now Diet [DIET] Diet 04/18/17 Dinner Ordered BASIC METABOLIC PANEL,BMP [CHEM] Stat Lab 04/19/17 23:41 Ordered BLOOD GAS ARTERIAL [BG] Stat Lab 04/18/17 23:41 Ordered MAGNESIUM [CHEM] Stat Lab 04/18/17 23:41 Ordered PHOSPHORUS [CHEM] Stat Lab 04/18/17 23:41 Ordered Escitalopram [Lexapro] Med 04/19/17 09:00 Ordered 20 mg PO DAILY Heparin Sodium Med 04/19/17 06:00 Ordered 5,000 units SUBCUT Q8HR Ondansetron [Zofran] Med 04/18/17 23:31 Ordered 4 mg IVPUSH Q4H PRN Potassium Chloride [KCL 20 MEQ in Water 100 ML] 20 meq Med 04/18/17 23:44 Ordered Premix Bag 1 bag IV ONETIME Regular Insulin,Human 100 Units in Normal Saline @ 0.1 Med 04/18/17 23:45 Ordered UNITS/KG/HR Insulin Regular, Human [HumuLIN R] 100 unit Sodium Chloride 0.9% [Normal Saline] 99 ml IV TITRATE Sodium Chloride 0.9% with KCl [Normal Saline with 40 Med 04/18/17 23:45 Ordered mEq KCl] 1,000 ml IV ASDIRECTED Resuscitation Status Routine Resus Stat 04/18/17 23:31 Ordered Medication Orders Escitalopram Oxalate (Lexapro) 20 mg PO DAILY [facility] Heparin Sodium (Porcine) (Heparin Sodium) 5,000 units SUBCUT Q8HR [facility] Insulin Human Regular 100 unit (/ Sodium Chloride) 100 mls @ 6.55 mls/hr IV TITRATE JOSE; 0.1 UNITS/KG/HR PRN Reason: Protocol Potassium Chloride 20 meq/ (Premix) 100 mls @ 50 mls/hr IV ONETIME ONE Stop: 04/19/17 01:43 Potassium Chloride/Sodium Chloride (Normal Saline With 40 Meq Kcl) 1,000 mls @ 150 mls/hr IV ASDIRECTED [facility] Ondansetron HCl (Zofran) 4 mg IVPUSH Q4H PRN PRN Reason: Nausea/Vomiting Assessment/Plan Comment:: #DKA IV fluids Insulin gtt BMP, Mg, Phosph Q4 until gap closes Accuchecks Q1 hr Zofran, Reglan PRN vomiting #DVT ppx SC heparin
[2017-04-19 00:16] LABS: BASE EXCESS ARTERIAL 1 mmol/L ((-2)-(+3)); BICARBONATE,ARTERIAL 20.9 mmol/L (22-26); O2 DELIVERY DEVICE ROOM AIR; O2 SATURATION ARTERIAL 99 % (95-100); PCO2 ARTERIAL 22 mmHg (35-45); PO2 ARTERIAL 98 mmHg (70-100)
[2017-04-19 00:19] LABS: CHLORIDE,CL 99 mmol/L (101-111); SODIUM,NA 134 mmol/L (135-145)
[2017-04-19 04:32] LABS: CHLORIDE,CL 102 mmol/L (101-111); SODIUM,NA 137 mmol/L (135-145)
[2017-04-19] MEDS ORDERED: Heparin Sodium 5,000 Units/ML Vial SUBCUT SCH (06:00)
[2017-04-19] MEDS ORDERED: Insulin NPH/Insulin Regular,Human 70-30 100 Units/ML 10 ML Vial SUBCUT ONE (07:05)
[2017-04-19] MEDS ORDERED: Potassium Chloride 10 MEQ Tab.ER PO ONE (07:10)
[2017-04-19] MEDS: Insulin Aspart 100 Units/ML 3 ML Pen SUBCUT SCH ×2 (08:01→11:37)
[2017-04-19] MEDS ORDERED: Escitalopram 10 MG Tab PO SCH (09:00)
--- NOTE | 2017-04-19 09:52 | PCM.DCSUM1 ---
Discharge Summary - Hospital Course Free Text/Narrative:: 57 yo M with hx of DM, GI bleed was admitted with nausea/vomiting and abdominal pain. He was managed for mild DKA with IV fluids and insulin. Hypokalemia was also corrected with IV and oral potassium. Tolerated oral feeds in the morning and okay for discharge to continue regular insulin regimen. F/u with PCP. - Discharge Data Discharge Date: 04/19/17 Discharge Disposition: Home, Self-Care 01 Condition: Good - Discharge Diagnosis/Problem(s) (1) DKA, type 2 SNOMED Code(s): 790177686 ICD Code: E11.10 - TYPE 2 DIABETES MELLITUS WITH KETOACIDOSIS WITHOUT COMA Status: Acute Current Visit: Yes (2) Hypokalemia SNOMED Code(s): 69739605 ICD Code: E87.6 - HYPOKALEMIA Status: Acute Current Visit: No - Patient Instructions Diet: Diabetic Diet Activity: As Tolerated Showering/Bathing: May Shower - Discharge Plan Home Medications: Home Meds Insulin Glarg,Human.Rec.Analog [LantUS Solostar] 38 units SUBCUT DAILY 12/28/16 [History] Escitalopram [Lexapro] 20 mg PO DAILY 04/18/17 [History] Insulin Regular, Human [NovoLIN R] 5 units SQ ASDIRECTED 04/18/17 [History] Potassium Chloride 10 meq PO DAILY 04/18/17 [History] Ranitidine HCl [Ranitidine] 150 mg PO DAILY 04/18/17 [History] Forms: ED Department Discharge Referrals: PCP,Unobtain [Primary Care Provider] - - Discharge Summary/Plan Comment DC Time >30 min.: Yes - General Info Date of Service: 04/19/17 Admission Dx/Problem (Free Text: Admission Diagnosis/Problem Admission Diagnosis/Problem Diabetic ketoacidosis Subjective Update: tolerated oral diet, mild nausea. blood sugar controlled, anion gap closed Functional Status: Reports: Pain Controlled - Review of Systems General: Reports: No Symptoms HEENT: Reports: No Symptoms Pulmonary: Reports: No Symptoms Cardiovascular: Reports: No Symptoms Gastrointestinal: Reports: Nausea Genitourinary: Reports: No Symptoms - Patient Data Vitals - Most Recent: Last Vital Signs Temp 37.1 C 04/19/17 07:00 Pulse 105 H 04/19/17 07:00 Resp 20 04/19/17 07:00 BP 116/69 04/19/17 07:00 Pulse Ox 97 04/19/17 07:00 Weight - Most Recent: 65.544 kg I&O - Last 24 hours: Intake & Output 04/18/17 04/19/17 04/19/17 22:59 06:59 14:59 Intake Total 607 461 Output Total 400 Balance 207 461 Lab Results - Last 24 hrs: Laboratory Results - last 24 hr 04/18/17 04/18/17 04/19/17 Range/Units 23:51 23:53 00:00 ABG pH (7.35-7.45) ABG pCO2 (35-45) mmHg ABG pO2 (70-100) mmHg ABG HCO3 (22-26) mmol/L ABG O2 Saturation (95-100) % ABG Base Excess ((-2)-(+3)) mmol/L O2 Delivery Device Sodium 134 L (135-145) mmol/L Potassium 3.2 L (3.6-5.0) mmol/L Chloride 99 L (101-111) mmol/L Carbon Dioxide 22.0 (21.0-31.0) mmol/L Anion Gap 16.2 BUN 16 (7-18) mg/dL Creatinine 0.8 (0.6-1.3) mg/dL Est Cr Clr Drug Dosing 87.36 mL/min Estimated GFR (MDRD) > 60 Glucose 266 H (74-105) mg/dL POC Glucose 273 H (70-105) mg/dl Calcium 8.9 (8.4-10.2) mg/dl Phosphorus 3.4 (2.5-4.6) mg/dL Magnesium 1.4 L (1.8-2.5) mg/dL 04/19/17 04/19/17 04/19/17 Range/Units 00:10 01:02 02:17 ABG pH 7.59 H (7.35-7.45) ABG pCO2 22 L (35-45) mmHg ABG pO2 98 (70-100) mmHg ABG HCO3 20.9 L (22-26) mmol/L ABG O2 Saturation 99 (95-100) % ABG Base Excess 1 ((-2)-(+3)) mmol/L O2 Delivery Device Room air Sodium (135-145) mmol/L Potassium (3.6-5.0) mmol/L Chloride (101-111) mmol/L Carbon Dioxide (21.0-31.0) mmol/L Anion Gap BUN (7-18) mg/dL Creatinine (0.6-1.3) mg/dL Est Cr Clr Drug Dosing mL/min Estimated GFR (MDRD) Glucose (74-105) mg/dL POC Glucose 265 H 273 H (70-105) mg/dl Calcium (8.4-10.2) mg/dl Phosphorus (2.5-4.6) mg/dL Magnesium (1.8-2.5) mg/dL 04/19/17 04/19/17 04/19/17 Range/Units 04:00 04:05 04:58 ABG pH (7.35-7.45) ABG pCO2 (35-45) mmHg ABG pO2 (70-100) mmHg ABG HCO3 (22-26) mmol/L ABG O2 Saturation (95-100) % ABG Base Excess ((-2)-(+3)) mmol/L O2 Delivery Device Sodium 137 (135-145) mmol/L Potassium 3.3 L (3.6-5.0) mmol/L Chloride 102 (101-111) mmol/L Carbon Dioxide 25.0 (21.0-31.0) mmol/L Anion Gap 13.3 BUN 18 (7-18) mg/dL Creatinine 0.9 (0.6-1.3) mg/dL Est Cr Clr Drug Dosing 77.65 mL/min Estimated GFR (MDRD) > 60 Glucose 106 H (74-105) mg/dL POC Glucose 113 H 70 (70-105) mg/dl Calcium 8.5 (8.4-10.2) mg/dl Phosphorus (2.5-4.6) mg/dL Magnesium (1.8-2.5) mg/dL 04/19/17 04/19/17 Range/Units 05:55 07:13 ABG pH (7.35-7.45) ABG pCO2 (35-45) mmHg ABG pO2 (70-100) mmHg ABG HCO3 (22-26) mmol/L ABG O2 Saturation (95-100) % ABG Base Excess ((-2)-(+3)) mmol/L O2 Delivery Device Sodium (135-145) mmol/L Potassium (3.6-5.0) mmol/L Chloride (101-111) mmol/L Carbon Dioxide (21.0-31.0) mmol/L Anion Gap BUN (7-18) mg/dL Creatinine (0.6-1.3) mg/dL Est Cr Clr Drug Dosing mL/min Estimated GFR (MDRD) Glucose (74-105) mg/dL POC Glucose 83 97 (70-105) mg/dl Calcium (8.4-10.2) mg/dl Phosphorus (2.5-4.6) mg/dL Magnesium (1.8-2.5) mg/dL Med Orders - Current: Current Medications Escitalopram Oxalate (Lexapro) 20 mg PO DAILY [facility] Last Admin: 04/19/17 08:06 Dose: 20 mg Heparin Sodium (Porcine) (Heparin Sodium) 5,000 units SUBCUT Q8HR [facility] Last Admin: 04/19/17 08:04 Dose: 5,000 units Insulin Aspart (Novolog) 0 unit SUBCUT TIDAC [facility] PRN Reason: Protocol Last Admin: 04/19/17 08:01 Dose: Not Given Ondansetron HCl (Zofran) 4 mg IVPUSH Q4H PRN PRN Reason: Nausea/Vomiting Last Admin: 04/19/17 08:54 Dose: 4 mg Discontinued Medications Al Hydroxide/Mg Hydroxide (Gi Cocktail) 30 ml PO ONETIME ONE Stop: 04/18/17 21:48 Last Admin: 04/18/17 21:53 Dose: 30 ml Fentanyl (Sublimaze) 50 mcg IVPUSH ONETIME ONE Stop: 04/18/17 20:41 Last Admin: 04/18/17 20:55 Dose: 50 mcg Sodium Chloride (Normal Saline) 1,000 mls @ 999 mls/hr IV .BOLUS ONE Stop: 04/18/17 20:13 Last Admin: 04/18/17 19:29 Dose: 999 mls/hr Potassium Chloride 10 meq/ (Premix) 100 mls @ 100 mls/hr IV ONETIME ONE Stop: 04/18/17 20:54 Last Admin: 04/18/17 20:01 Dose: 100 mls/hr Sodium Chloride (Normal Saline) 1,000 mls @ 125 mls/hr IV ASDIRECTED ONE Stop: 04/19/17 05:23 Last Admin: 04/18/17 21:25 Dose: 125 mls/hr Insulin Human Regular 100 unit (/ Sodium Chloride) 100 mls @ 6.55 mls/hr IV TITRATE JOSE; 0.1 UNITS/KG/HR PRN Reason: Protocol Last Infusion: 04/19/17 05:57 Dose: 0 units/kg/hr, 0 mls/hr Potassium Chloride 20 meq/ (Premix) 100 mls @ 50 mls/hr IV ONETIME ONE Stop: 04/19/17 01:43 Last Admin: 04/18/17 23:58 Dose: 50 mls/hr Potassium Chloride/Sodium Chloride (Normal Saline With 40 Meq Kcl) 1,000 mls @ 150 mls/hr IV ASDIRECTED [facility] Last Admin: 04/19/17 02:23 Dose: 150 mls/hr Insulin Human Isoph/Insulin Regular (Novolin 70-30) 20 unit SUBCUT ONETIME ONE Stop: 04/19/17 07:06 Last Admin: 04/19/17 08:05 Dose: 20 units Lorazepam (Ativan) 0.5 mg IM ONETIME ONE Stop: 04/18/17 21:05 Last Admin: 04/18/17 21:14 Dose: 0.5 mg Morphine Sulfate (Morphine) 2 mg IVPUSH ONETIME ONE Stop: 04/18/17 19:43 Last Admin: 04/18/17 19:50 Dose: 2 mg Ondansetron HCl (Zofran) 4 mg IV ONETIME ONE Stop: 04/18/17 19:47 Last Admin: 04/18/17 19:49 Dose: 4 mg Pantoprazole Sodium (Protonix Iv) 40 mg IVPUSH ONETIME ONE Stop: 04/18/17 20:08 Last Admin: 04/18/17 21:14 Dose: 40 mg Potassium Chloride (Klor-Con 10) 40 meq PO ONETIME ONE Stop: 04/19/17 07:11 Last Admin: 04/19/17 08:06 Dose: 40 meq - Exam General: Reports: Alert, Oriented HEENT: Reports: Pupils Equal Neck: Reports: Supple Lungs: Reports: Clear to Auscultation Cardiovascular: Reports: Regular Rate, Regular Rhythm GI/Abdominal Exam: Normal Bowel Sounds, Soft *Q Meaningful Use (DIS) - VTE *Q VTE Criteria *Q: - Stroke *Q Stroke Criteria *Q: - AMI *Q AMI Criteria *Q:
[2017-04-19 11:24] VITALS: BP 111/65
== END 2017-04-19 12:34 | disposition home or self-care (01) | DRG 420 ==
LOC: DL.ED 19:00 → INTOOBSV 22:01 → UNDOADMOB 22:01 → OBSVTOIN 22:01 → DL.MS 22:01 → OBSVTOIN 23:31
PROVIDERS: ADMIT Hospitalist; ATTEND Hospitalist
DX: E11.10 Type 2 diabetes mellitus with ketoacidosis without coma (principal); E87.6 Hypokalemia; E78.00 Pure hypercholesterolemia, unspecified; E11.21 Type 2 diabetes mellitus with diabetic nephropathy; F41.9 Anxiety disorder, unspecified; K21.9 Gastro-esophageal reflux disease without esophagitis; Z88.8 Allergy status to other drugs, medicaments and biological substances; Z79.4 Long term (current) use of insulin; Z79.899 Other long term (current) drug therapy
CPT/HCPCS: 36415; 36600; 80048; 80053; 81001; 82150; 82272; 82803; 82962; 83605; 83690; 83735; 84100; 85025; 96361; 96365; 96372; 96375; 99285; A9270-GY; C9113; J1644; J1815; J1815-GY; J2060; J2270; J2405; J3010; J3480; J7030; J7050

== ENCOUNTER 2017-06-07 19:03 | Emergency (ER) | payer BC ==
[2017-06-07] MEDS ORDERED: Ondansetron 4 MG Tab.DIS PO ONE (19:04)
[2017-06-07] MEDS ORDERED: Acetaminophen/HYDROcodone 325-10 MG Tab PO ONE (19:04)
[2017-06-07 20:57] LABS: CHLORIDE,CL 93 mmol/L (101-111); SODIUM,NA 134 mmol/L (135-145)
[2017-06-07] MEDS ORDERED: Sodium Chloride 0.9% 1,000 ML IV ONE (21:09)
[2017-06-07] MEDS ORDERED: Iopamidol 612 MG/ML 75 ML Bottle IVPUSH ONE (22:00)
[2017-06-07] MEDS ORDERED: Morphine 2 MG/ML Syringe IVPUSH ONE (22:03)
--- NOTE | 2017-06-07 23:14 | EDM.PDOC ---
ED HPI GENERAL MEDICAL PROBLEM - General Chief Complaint: Gastrointestinal Problem Stated Complaint: [id number] STOMACH PAINS VOMITING SAT AND SUN Time Seen by Provider: 06/07/17 20:10 Source of Information: Reports: Patient History Limitations: Reports: No Limitations - History of Present Illness INITIAL COMMENTS - FREE TEXT/NARRATIVE: Vomiting Tuesday and Tuesday, now pain lower abdomen and feeling shakey poor appetite today, not drinking much fluid, last BM tuesday. Location: Reports: Abdomen Bilateral Abdomen Pain Score (Numeric/FACES): 7 - Related Data Allergies Allergy/AdvReac Type Severity Reaction Status Date / Time dulaglutide [From [facility]] Allergy Nausea Verified 06/07/17 19:23 Home Meds: Home Meds Insulin Glarg,Human.Rec.Analog [LantUS Solostar] 38 units SUBCUT DAILY 12/28/16 [History] Escitalopram [Lexapro] 20 mg PO DAILY 04/18/17 [History] Insulin Regular, Human [NovoLIN R] 5 units SQ ASDIRECTED 04/18/17 [History] Potassium Chloride 10 meq PO DAILY 04/18/17 [History] Ranitidine HCl [Ranitidine] 150 mg PO DAILY 04/18/17 [History] Past Medical History HEENT History: Reports: Impaired Vision Cardiovascular History: Reports: High Cholesterol Gastrointestinal History: Reports: GERD Genitourinary History: Reports: Diabetic Nephropathy Neurological History: Reports: None Psychiatric History: Reports: Anxiety Endocrine/Metabolic History: Reports: Diabetes, Type II - Infectious Disease History Infectious Disease History: Reports: Chicken Pox - Past Surgical History HEENT Surgical History: Reports: Other (See Below) Other HEENT Surgeries/Procedures: cleff palate reconstruction. ear surgery GI Surgical History: Reports: Colonoscopy Social & Family History - Family History Family Medical History: Noncontributory - Tobacco Use Smoking Status *Q: Never Smoker Second Hand Smoke Exposure: No - Caffeine Use Caffeine Use: Reports: Coffee Caffeine Use Comment: 1/2 pot of coffee daily - Alcohol Use Days Per Week of Alcohol Use: 1 Number of Drinks Per Day: 1 Total Drinks Per Week: 1 - Recreational Drug Use Recreational Drug Use: No ED ROS GENERAL - Review of Systems Review Of Systems: See Below Constitutional: Reports: Weakness, Decreased Appetite. Denies: Fever, Chills HEENT: Reports: No Symptoms Respiratory: Reports: No Symptoms Cardiovascular: Reports: No Symptoms GI/Abdominal: Reports: Abdominal Pain, Decreased Appetite, Vomiting : Reports: No Symptoms Musculoskeletal: Reports: No Symptoms Skin: Reports: No Symptoms Neurological: Reports: No Symptoms ED EXAM, GI/ABD - Physical Exam Exam: See Below Exam Limited By: No Limitations General Appearance: Alert, No Apparent Distress, Anxious Eyes: Bilateral: Nystagmus (horizontal) Ears: Normal External Exam Nose: Normal Inspection Throat/Mouth: Normal Inspection, Other (membranes moist) Head: Atraumatic, Normocephalic Neck: Normal Inspection, Full Range of Motion Respiratory/Chest: No Respiratory Distress, Lungs Clear, Normal Breath Sounds Cardiovascular: Normal Peripheral Pulses, Regular Rate, Rhythm GI/Abdominal Exam: Normal Bowel Sounds, Soft, Tender (generalized). No: Distended, Guarding Back Exam: Normal Inspection Extremities: Normal Inspection Neurological: Alert, Oriented, Normal Cognition Psychiatric: Anxious Skin Exam: Warm, Dry, Intact, Normal Color Course - Vital Signs Last Recorded V/S: Last Vital Signs Temp 99.9 F 06/07/17 23:25 Pulse 104 H 06/07/17 23:25 Resp 18 06/07/17 23:25 BP 168/88 H 06/07/17 23:25 Pulse Ox 99 06/07/17 23:25 - Orders/Labs/Meds Orders: Active Orders 24 hr Category Date Time Status UA W/MICROSCOPIC [URIN] Stat Lab 06/07/17 21:08 Ordered Labs: Laboratory Tests 06/07/17 06/07/17 06/07/17 Range/Units 20:34 20:34 20:34 WBC 13.0 H (5.0-10.0) 10^3/uL RBC 5.37 (4.6-6.2) 10^6/uL Hgb 15.0 (14.0-18.0) g/dL Hct 41.4 (40.0-54.0) % MCV 77.1 L (80-100) fL MCH 27.9 (27.0-34.0) pg MCHC 36.2 H (33.0-35.0) g/dL Plt Count 252 (150-450) 10^3/uL Neut % (Auto) 79.4 H (42.2-75.2) % Lymph % (Auto) 11.4 L (20.5-50.1) % [place] % (Auto) 8.8 H (2-8) % Eos % (Auto) 0.1 L (1.0-3.0) % Baso % (Auto) 0.3 (0.0-1.0) % Sodium 134 L (135-145) mmol/L Potassium 3.3 L (3.6-5.0) mmol/L Chloride 93 L (101-111) mmol/L Carbon Dioxide 31.0 (21.0-31.0) mmol/L Anion Gap 13.3 BUN 24 H (7-18) mg/dL Creatinine 0.7 (0.6-1.3) mg/dL Est Cr Clr Drug Dosing 92.08 mL/min Estimated GFR (MDRD) > 60 BUN/Creatinine Ratio 34.28 Glucose 132 H (74-105) mg/dL Calcium 9.5 (8.4-10.2) mg/dl Total Bilirubin 1.7 H (0.2-1.0) mg/dL AST 17 (10-42) IU/L ALT 17 (10-60) IU/L Alkaline Phosphatase 64 (42-121) IU/L Total Protein 7.5 (6.7-8.2) g/dl Albumin 4.3 (3.2-5.5) g/dl Globulin 3.2 Albumin/Globulin Ratio 1.34 Amylase 21 L (28-100) U/L Meds: Medications Discontinued Medications Generic Name Dose Route Start Last Admin Trade Name Freq PRN Reason Stop Dose Admin Hydrocodone Bitart/Acetaminophen Confirm 06/07/17 23:17 06/07/17 23:29 [place] 325-10 Mg Administered 06/07/17 23:18 Not Given Dose 2 tab .ROUTE .STK-MED ONE Sodium Chloride 1,000 mls @ 999 mls/hr 06/07/17 21:09 06/07/17 21:14 Normal Saline IV 06/07/17 22:09 999 mls/hr .BOLUS ONE Administration Iopamidol 75 ml 06/07/17 22:00 06/07/17 22:49 Isovue-300 (61%) IVPUSH 06/07/17 22:01 75 ml ONETIME ONE Administration Morphine Sulfate 2 mg 06/07/17 22:03 06/07/17 22:08 Morphine IVPUSH 06/07/17 22:04 2 mg ONETIME ONE Administration Ondansetron HCl Confirm 06/07/17 23:17 06/07/17 23:29 Zofran Odt Administered 06/07/17 23:18 Not Given Dose 8 mg .ROUTE .[facility] - Radiology Interpretation Free Text/Narrative:: CT abdomen and pelvis: small hiatal hernia, mild thickening of distal esophagus. 2 left renal cyst also noted on previous exam. No obstruction Departure - Departure Time of Disposition: 23:14 Disposition: Home, Self-Care 01 Condition: Good Clinical Impression: Gastroenteritis, Hiatal hernia, Abdominal pain - Discharge Information Instructions: Nausea and Vomiting, Adult, [id number] Referrals: PCP,Not In Area [Primary Care Provider] - Forms: ED Department Discharge Additional Instructions: Zofran 4mg ODT 4mg one every 6 hours as needed for nausea #2 Hydrocodone 10/325 one every 6 hours as needed for severe pain #2 light diet advance as tolerated follow up with primary care if continued symptoms - My Orders Last 24 Hours: My Active Orders 06/07/17 21:08 UA W/MICROSCOPIC [URIN] Stat - Assessment/Plan Last 24 Hours: My Active Orders 06/07/17 21:08 UA W/MICROSCOPIC [URIN] Stat
[2017-06-07] MEDS ORDERED: Acetaminophen/HYDROcodone 325-10 MG Tab ONE (23:17)
[2017-06-07] MEDS ORDERED: Ondansetron 4 MG Tab.DIS ONE (23:17)
[2017-06-07 23:34] VITALS: BP 168/88
== END 2017-06-07 23:27 | disposition home or self-care (01) ==
LOC: DL.ED 19:03
DX: K52.9 Noninfective gastroenteritis and colitis, unspecified (principal); K44.9 Diaphragmatic hernia without obstruction or gangrene; E78.00 Pure hypercholesterolemia, unspecified; E11.21 Type 2 diabetes mellitus with diabetic nephropathy; Z88.8 Allergy status to other drugs, medicaments and biological substances; Z79.4 Long term (current) use of insulin; Z79.899 Other long term (current) drug therapy
CPT/HCPCS: 36415; 74177; 80053; 82150; 85025; 96361; 96374; 99284; A9270; J2270; J7030; Q9967